=== PATIENT | female | born 1965 | race African-American/Black ===

== ENCOUNTER → 2018-11-12 | Outpatient (CLI) | payer MEDICAID | END | disposition home or self-care (01) | LOC: CFH 10:50 | PROVIDERS: ATTEND Nurse Practitioner | DX: M25.561 Pain in right knee (principal) ==

== ENCOUNTER → 2019-02-11 | Outpatient (CLI) | payer MEDICAID | END | disposition home or self-care (01) | LOC: CFH 09:50 | PROVIDERS: ATTEND Nurse Practitioner | DX: M67.461 Ganglion, right knee (principal) ==